=== PATIENT | male | born 1960 | race Caucasian/White ===

== ENCOUNTER 2018-04-11 12:46 | Emergency (ER) | payer OTHER ==
[~2018-04-11] VITALS: Ht 177.8 cm; Wt 90.7 kg
== END 2018-04-11 14:05 | disposition home or self-care (01) ==
LOC: ED 12:46
DX: K64.5 Perianal venous thrombosis (principal); Z88.5 Allergy status to narcotic agent
CPT/HCPCS: 96372; 99282; J1885